=== PATIENT | female | born 1985 | race Caucasian/White ===

== ENCOUNTER 2023-08-15 06:25 | Inpatient (IN) | payer BC ==
[2023-08-15 07:21] VITALS: BMI 27.4
[2023-08-15] MEDS ORDERED: hydrALAZINE 20 MG/ML VIAL SLOW IVP PRN ×3 (07:53→15:02)
[2023-08-15 08:34] LABS: Hematocrit 33.5 % (34.9-44.5); Hemoglobin 10.9 g/dL (12.0-15.5); Mean Corpuscular HGB CONC 32.5 g/dL (32.0-36.0); Mean Corpuscular Hemoglobin 28.3 pg (27.0-33.0); Mean Platelet Volume 11.4 fL (7.4-10.4); Platelet Count 175 10x3/uL (150-450); RBC Distribution Width 12.6 % (11.5-14.5); Red Blood Cell (RBC) Count 3.85 10x6/uL (3.90-5.03)
[2023-08-15] MEDS ORDERED: fentaNYL 50 mcg/mL 1 mL Vial SLOW IVP PRN (08:38)
[2023-08-15] MEDS ORDERED: Promethazine HCl 25 MG/ML VIAL IM PRN ×2 (08:38→10:33)
[2023-08-15] MEDS ORDERED: Lidocaine 1% (PF) 30 ML VIAL SC PRN (08:38)
[2023-08-15] MEDS ORDERED: Ondansetron PF 4 MG/2 ML Vial IVP PRN ×3 (08:38→15:02)
[2023-08-15] MEDS ORDERED: Lactated Ringer's 1,000 ML IV SCH (08:45)
[2023-08-15] MEDS ORDERED: Oxytocin 30 units/NS 500 ML 500 ML IV SCH ×3 (08:45→15:02)
[2023-08-15 09:09] LABS: HBsAg Index 0.19 S/CO (0-0.99); Hep B Surf Ag - L&D Non-Reactive S/CO (NonReactive)
[2023-08-15 09:56] LABS: Syphilis Antibody Nonreactive (Nonreactive); Syphilis Antibody Index 0.05 S/CO (<1.00 Non-Reactive)
[2023-08-15] MEDS: fentaNYL/Ropivacaine Epidural 100 ML ONE (10:17)
[2023-08-15] MEDS ORDERED: Naloxone HCl 0.4 mg/ml Vial IVP PRN ×2 (10:33)
[2023-08-15] MEDS ORDERED: Acetaminophen 325 MG TAB PO PRN (10:33)
[2023-08-15] MEDS ORDERED: ePHEDrine Sulfate 50 MG/10 ML VIAL SLOW IVP PRN (10:33)
[2023-08-15] MEDS ORDERED: Moisturizing Cream (Eucerin) 113 GM JAR TOP PRN (10:33)
[2023-08-15] MEDS ORDERED: Lactated Ringer's 500 ML IV PRN (10:33)
[2023-08-15] MEDS ORDERED: diphenhydrAMINE 50 MG/ML VIAL IVP PRN (10:33)
[2023-08-15] MEDS ORDERED: fentaNYL 2 mcg/Ropivacaine 0.2% Epidural 100 ML CADD EPIDURAL SCH (10:45)
[2023-08-15] MEDS ORDERED: Communication Order-Pharmacy FS SCH (10:45)
[2023-08-15 13:51] LABS: Analyzer IN Cardio CS NICU; RapidComm Collect By OR NURSE; pH (Cord, venous) 7.302 (7.250-7.350)
[2023-08-15 13:53] LABS: Analyzer IN Cardio CS NICU; RapidComm Collect By OR NURSE
[2023-08-15] MEDS ORDERED: Milk Of Magnesia 30 ML UDCUP PO PRN (15:02)
[2023-08-15] MEDS ORDERED: diphenhydrAMINE 25 MG CAP PO PRN (15:02)
[2023-08-15] MEDS ORDERED: Bisacodyl 10 MG SUPP PR PRN (15:02)
[2023-08-15] MEDS ORDERED: HYDROcodone/Acetaminophen 5/325 mg Tablet PO PRN ×2 (15:02)
[2023-08-15] MEDS ORDERED: Lanolin Ointment 7 GM TUBE TOP PRN (15:02)
[2023-08-15] MEDS ORDERED: Benzocaine-Menthol 82.5 ML CAN TOP PRN (15:02)
[2023-08-15] MEDS ORDERED: Preparation H Ointment 28 GM TUBE PR PRN (15:02)
[2023-08-15] MEDS: Ferrous Sulfate 325 MG TAB PO SCH (17:50)
[2023-08-15] MEDS ORDERED: Bupivacaine 0.25% HCL 30 ML VIAL ONE (20:10)
[2023-08-15] MEDS: Ibuprofen 800 MG TAB PO SCH (21:13)
[2023-08-15] MEDS: Docusate 100 MG CAP PO SCH (21:13)
[2023-08-16] MEDS: Erythromycin Base 0.5% Oint 1 GM TUBE ONE (04:04)
[2023-08-16] MEDS: PHENYLEPHRINE-NS 100 MCG/ML 10 ML SYRINGE ONE (04:04)
[2023-08-16] MEDS: Phytonadione Neonatal 1 MG/0.5 ML AMP ONE (04:04)
[2023-08-16] MEDS: Boostrix 0.5 ML (Tdap) VIAL (>/=7 yrs of age) IM ONE (07:35)
[2023-08-16] MEDS: Prenatal Vitamin 1 TAB PO SCH (07:44)
[2023-08-16 12:27] VITALS: BP 115/58; TEMP 98.2
== END 2023-08-16 15:10 | disposition home or self-care (01) | DRG 807 ==
LOC: CSHLD/OP 06:25 → CSHLD 08:28 → CSHPP 15:17
PROVIDERS: ADMIT Obstetrics & Gynecology; ATTEND Obstetrics & Gynecology
PROC: 10907ZC Drainage of Amniotic Fluid, Therapeutic from Products of Conception, Via Natural or Artificial Opening (ICD-10-PCS; principal; 2023-08-15)
PROC: 10E0XZZ Delivery of Products of Conception, External Approach (ICD-10-PCS; 2023-08-15)
PROC: 3E0334Z Introduction of Serum, Toxoid and Vaccine into Peripheral Vein, Percutaneous Approach (ICD-10-PCS; 2023-08-16)
DX: O76 Abnormality in fetal heart rate and rhythm complicating labor and delivery (principal); Z37.0 Single live birth; O09.523 Supervision of elderly multigravida, third trimester; Z3A.38 38 weeks gestation of pregnancy; O26.893 Other specified pregnancy related conditions, third trimester; Z67.11 Type A blood, Rh negative
CPT/HCPCS: 36415; 51702; 82805; 85027; 85461; 86780; 86850; 86870; 86900; 86901; 87340; 90384; 96372; 99285; J0665